=== PATIENT | female | born 1985 | race Caucasian/White ===

== ENCOUNTER 2019-09-13 06:54 | Day surgery (SDC) | payer BC ==
[2019-09-13] MEDS ORDERED: Lactated Ringers 1,000 ML IV ONE ×2 (07:13→08:18)
[2019-09-13] MEDS ORDERED: KEFZOL 1 GM/50 ML PREMIX** 1 GM/50 ML IVPB IV ONE (07:13)
[2019-09-13] MEDS ORDERED: KEFZOL 1 GM/50 ML PREMIX** 1 GM/50 ML IVPB IV SCH (07:15)
[2019-09-13] MEDS ORDERED: Lactated Ringers 1,000 ML IV SCH (07:30)
[2019-09-13] MEDS ORDERED: Sensorcaine 0.25% 10 ML ONE (08:18)
[2019-09-13] MEDS ORDERED: SUBLIMAZE 100 MCG/2 ML ONE ×2 (08:24→09:32)
[2019-09-13] MEDS ORDERED: DIPRIVAN 200 MG/20 ML IV ONE (08:24)
[2019-09-13] MEDS ORDERED: Zemuron 100 MG/10 ML ONE (08:24)
[2019-09-13] MEDS ORDERED: Quelicin Fliptop 200 MG/10 ML ONE (08:24)
[2019-09-13] MEDS ORDERED: ROBINUL ONE (08:55)
[2019-09-13] MEDS ORDERED: BRIDION 200MG/2ML IV ONE (09:18)
[2019-09-13] MEDS ORDERED: Decadron 4 MG INJ ONE (09:18)
[2019-09-13] MEDS ORDERED: Zofran 4 MG/2 ML VIAL ONE (09:18)
[2019-09-13] MEDS ORDERED: DILAUDID 2 MG INJECTION ONE (09:41)
[2019-09-13 10:30] VITALS: O2SAT 98
[2019-09-13 11:00] VITALS: BP 118/68; PULSE 70
--- NOTE | 2019-09-13 15:02 | OP ---
SURGERY DATE/TIME: 09/13/2019 0844 PREOPERATIVE DIAGNOSES: 1) Retained intrauterine device. 2) Multiparity desiring tubal sterilization. POSTOPERATIVE DIAGNOSES: 1) Retained intrauterine device. 2) Multiparity desiring tubal sterilization. PROCEDURES: 1) Removal of intrauterine device. 2) Laparoscopic tubal sterilization via Falope ring application. SURGEON: Alexander Keith D.O. SEPARATOR TENDER: Chilo Kinney neurosurgical physician assistant. ANESTHESIA: General. ESTIMATED BLOOD LOSS: Minimal. COMPLICATIONS: None. INDICATIONS: The risks, benefits, indications and alternatives of the procedure were reviewed with the patient prior to procedure. The patient understood the risk of infection, bleeding, bowel injury, bladder injury, ureteral injury, incisional hernia, possible future and ectopic that can be associated with 1:4 out of 1,000 who may still get as a result of having tubal sterilization, all other forms of control were discussed with the patient including control pills, Depo-Provera injection, intrauterine devices, as well as arm insertion. All forms of control were reviewed with the patient prior to the procedure and at this point the patient desires to have the procedure as a possible means to alleviate her current medical condition. DESCRIPTION OF PROCEDURE AND FINDINGS: From this point the patient is taken to the operating room, given general sedation, placed in a dorsal lithotomy position. Prepped and draped in usual sterile fashion. A weighted speculum is then placed in the patient's vagina and at this point polyp forceps were used to grasp the intrauterine device string which was removed without complication. From this point a uterine manipulator was then advanced through the endocervical canal as means to manipulate the uterus. Attention was then turned to the patient's abdomen where at this point a 5 mm incision was made approximately 2 cm above the umbilicus where a 5 mm trocar and sleeve were advanced under direct visualization. Pneumoperitoneum was advanced with 4 liters of CO2 gas and additional incision approximately 2 cm above the symphysis pubis was made where an 8 mm trocar and sleeve were advanced under direct visualization. From this point the bilateral adnexa appeared to be within normal limits and the Falope ring applicator was then loaded and the right fallopian tube was identified and the Falope ring applicator was placed approximately 2 to 3 cm away from the cornual region on the right side where it was grasped and the Falope ring was applied without complication with excellent placement. The same procedure was performed on the left side where a Falope ring applicator was reloaded and taken through the trocar site where the left fallopian tube was identified and approximately 2 to 3 cm from the cornual region the Falope ring applicator was applied without complication. The ring was noted to be in excellent placement. From this point all instruments were removed from the patient's abdomen. CO2 gas was then removed. The incisions were closed with 4-0 Monocryl suture with subsequent Dermabond. The patient was then taken out of anesthesia and was then taken to the recovery room in stable condition. All instruments and laps were accounted for x2.
== END 2019-09-13 11:27 | disposition home or self-care (01) ==
LOC: SDC 06:54
PROVIDERS: ATTEND Obstetrics & Gynecology
DX: Z30.2 Encounter for sterilization (principal); Z30.432 Encounter for removal of intrauterine contraceptive device
CPT/HCPCS: 84703; J0330; J0690; J1100; J1170; J2405; J2704; J3010

== ENCOUNTER 2022-11-26 11:22 | Emergency (ER) | payer BC ==
[2022-11-26] MEDS ORDERED: Sodium Chloride 0.9% 1000 ML 1,000 ML IV SCH (11:45)
[2022-11-26 12:24] LABS: Absolute Neutrophil Ct (ANC) 6.66 x10^3/uL (1.4-6.9); BASOPHIL % 0.6 % (0.0-0.4); Basophil (Absolute #) 0.05 x10^3/uL (0-0.4); Eosinophil % 0.3 % (0.00-5.0); Eosinophil (Absolute #) 0.03 x10^3/uL (0-0.5); Hematocrit 35.3 % (35-47); Hemoglobin 11.3 g/dL (12.0-16.0); IMMATURE GRAN # 0.02 x10^3u/L (0.00-0.03); IMMATURE GRAN % 0.2 % (0.00-0.4); Lymphocyte (Absolute #) 1.36 x10^3/uL (1.0-4.6); Lymphocytes % 15.7 % (24.0-44.0); Mean Cell Volume 82.7 fL (78-100); Mean Corpuscular Hemoglobin 26.5 pg (26-32); Mean Platelet Volume 9.4 fL (7.5-11.0); Monocyte (Absolute #) 0.52 x10^3/uL (0.0-1.3); Neutrophil % 77.2 % (36.0-66.0); Platelet Count 315 x10^3/uL (150-450); Red Blood Count 4.27 x10^6/uL (4.1-5.4); White Blood Count 8.6 x10^3/uL (4.0-10.5)
--- NOTE | 2022-11-26 12:25 | XRAY ---
Indication: Sharp abdomen pain. Multiple contiguous axial images obtained through the abdomen and pelvis without contrast. Comparison: None Lung bases clear with incidental small left lower lobe and left infrahilar calcified granulomas. Heart not enlarged. Previous gastric bypass surgery. Noncontrasted stomach and bowel loops appear nonobstructed with normal appendix. Moderate diffuse scattered colonic fecal debris throughout. No free fluid/air. A few tiny splenic calcified granulomas. Remaining liver, gallbladder, pancreas, spleen, adrenal glands, kidneys, ureters, bladder, uterus, and aorta are unremarkable for noncontrast exam. Osseous structures intact. No ventral or inguinal hernias. Impression: 1. Diffuse fecal stasis and old granulomatous disease. 2. Remaining CT abdomen/pelvis without contrast exam is negative.
[2022-11-26] MEDS ORDERED: Sodium Chloride 0.9% 1000 ML 1,000 ML ONE (12:34)
[2022-11-26 12:35] LABS: ALBUMIN 4.3 g/dL (3.5-5.0); ALKALINE PHOSPHATASE 56 U/L (38-126); ANION GAP 14.5 MEQ/L (5-15); BLOOD UREA NITROGEN 14 mg/dL (7-17); CHLORIDE 105 mmol/L (98-107); Calcium 8.9 mg/dL (8.4-10.2); Carbon Dioxide 23 mmol/L (22-30); Creatinine 1 0.53 mg/dL (0.52-1.04); EST GLOMERULAR FILTRATION RATE > 60.0 ML/MIN; Glucose 81 mg/dL (74-106); LIPASE 50 U/L (23-300); Potassium 3.5 mmol/L (3.5-5.1); SGOT/AST 31 U/L (14-36); SGPT/ALT 15 U/L (0-35); SODIUM 139 mmol/L (137-145); Total Protein 7.1 g/dL (6.3-8.2)
[2022-11-26 12:53] VITALS: O2SAT 100
--- NOTE | 2022-11-26 13:10 | ERPHSYRPT ---
- History of Present Illness Time Seen by Provider: 11/26/22 11:45 Historian: patient Exam Limitations: no limitations Patient Subjective Stated Complaint: pt here for epigastric pain today for over 2 hours, pain comes and goes, some nasuea. Triage Nursing Assessment: pt alert, resp easy, walked in, skin w/d/p. moves all ext well, no edema, abd soft Physician History: Patient is a 37-year-old female presents emergency department for evaluation of epigastric pain. Patient states the pain comes and goes in waves. Patient currently asymptomatic. No active pain. Patient admits to history of gallstones. However patient states she was not a candidate for an elective cholecystectomy due to a fatty liver. No trauma. No fever. Patient experienced some mild nausea at the time of her abdominal pain. No active tea sea at this time. No trauma. No fever. Patient had a gastric bypass surgery approximately 10 years ago. Patient has a history of reflux but since her gastric bypass surgery she has had no issues with reflux. Patient denies chest pain. Patient voices no other complaints or concerns at this time. Portions of this note were created with voice recognition technology. There may be grammatical, spelling, punctuation or sound alike errors Timing/Duration: today Activities at Onset: none Quality: aching Abdominal Pain Onset Location: epigastric Pain Radiation: no radiation Severity of Pain-Max: moderate Severity of Pain-Current: mild Modifying Factors: Improves With: nothing Associated Symptoms: nausea Previous symptoms: same symptoms as today Allergies/Adverse Reactions: NSAIDS (Non-Steroidal Anti-Inflamma Adverse Reaction (Verified 11/26/22 11:32) Patient states she had gastric bypass surgery and she is not to take NSAIDS Home Medications: Dextroamphetamine/Amphetamine [Dextroamp-Amphetamin 10 mg Tab] 10 mg PO DAILY 11/26/22 [History] Pramipexole Di-HCl 0.5 mg [Mirapex 0.5 MG Tablet] 0.5 mg PO DAILY 11/26/22 [History] Hx Tetanus, Diphtheria Vaccination/Date Given: No Hx Influenza Vaccination/Date Given: No Hx Pneumococcal Vaccination/Date Given: No Immunizations Up to Date: Yes Travel Risk - International Travel Have you traveled outside of the country in past 3 weeks: No - Coronavirus Screening Are you exhibiting any of the following symptoms?: No Close contact with a COVID-19 positive Pt in past 14-21 Days: No - Vaccine Status Have you recieved a Covid-19 vaccination: No - Review of Systems Constitutional: No Symptoms, No Fever, No Chills Eyes: No Symptoms Ears, Nose, & Throat: No Symptoms Respiratory: No Symptoms, No Cough, No Dyspnea Cardiac: No Symptoms, No Chest Pain, No Edema, No Syncope Abdominal/Gastrointestinal: No Symptoms, No Abdominal Pain, No Nausea, No Vomiting, No Diarrhea Genitourinary Symptoms: No Symptoms, No Dysuria Musculoskeletal: No Symptoms, No Back Pain, No Neck Pain Skin: No Symptoms, No Rash Neurological: No Symptoms, No Dizziness, No Focal Weakness, No Sensory Changes Psychological: No Symptoms Endocrine: No Symptoms Hematologic/Lymphatic: No Symptoms Immunological/Allergic: No Symptoms All Other Systems: Reviewed and Negative - Past Medical History Pertinent Past Medical History: No Neurological History: No Pertinent History ENT History: No Pertinent History Cardiac History: No Pertinent History Respiratory History: No Pertinent History Endocrine Medical History: No Pertinent History Musculoskeletal History: No Pertinent History GI Medical History: GERD, Gallbladder Disease, Other History: No Pertinent History Psycho-Social History: No Pertinent History Female Reproductive Disorders: Other Other Medical History: has interuterine device that will be removed with surgery today. had hx of GERD before her gastric bypass surgery bun none since then,fatty liver, gallstones - Past Surgical History Past Surgical History: Yes Neuro Surgical History: No Pertinent History Cardiac: No Pertinent History Respiratory: No Pertinent History Gastrointestinal: Other Genitourinary: No Pertinent History Musculoskeletal: No Pertinent History Female Surgical History: No Pertinent History Other Surgical History: GASTRIC BYPASS - Social History Smoking Status: Current every day smoker How long have you smoked: 19 Exposure to second hand smoke: Yes Drug Use: none Patient Lives Alone: No - Female History Hx Last Menstrual Period: now Hx Now: No - Nursing Vital Signs Nursing Vital Signs: Initial Vital Signs Temperature 97 F 11/26/22 11:33 Pulse Rate 97 H 11/26/22 11:33 Respiratory Rate 18 11/26/22 11:33 Blood Pressure 133/73 11/26/22 11:33 O2 Sat by Pulse Oximetry 97 11/26/22 11:33 Pain Scale Pain Intensity 3 - Physical Exam General Appearance: no apparent distress, alert Eye Exam: PERRL/EOMI, eyes nml inspection Ears, Nose, Throat Exam: normal ENT inspection, TMs normal, pharynx normal, moist mucous membranes Neck Exam: normal inspection, non-tender, supple, full range of motion Respiratory Exam: normal breath sounds, lungs clear, airway intact, No respiratory distress Cardiovascular Exam: regular rate/rhythm, normal heart sounds, normal peripheral pulses Gastrointestinal/Abdomen Exam: soft, No tenderness, No mass Back Exam: normal inspection, normal range of motion, No CVA tenderness, No vertebral tenderness Extremity Exam: normal inspection, normal range of motion, pelvis stable Neurologic Exam: alert, oriented x 3, cooperative, normal mood/affect, nml cerebellar function, nml station & gait, sensation nml, No motor deficits Skin Exam: normal color, warm, dry Lymphatic Exam: No adenopathy SpO2 Interpretation: normal SpO2: 100 O2 Delivery: Room Air - Course Nursing assessment & vital signs reviewed: Yes - CT Exams Abdomen/Pelvis CT Interpretation: Tele-radiologist Report (CT abdomen pelvis without contrast reveals calcified lung granuloma diffuse fecal stasis otherwise negative) Ordered Tests: Active Orders 24 hr Category Date Time Status IV Insertion STAT Care 11/26/22 11:39 Active ABDOMEN AND PELVIS W/0 CONTRAS [CT] Stat Exams 11/26/22 11:39 Completed CBC W DIFF Stat Lab 11/26/22 12:00 Completed CMP Stat Lab 11/26/22 12:00 Completed HCG QUALITATIVE, URINE Stat Lab 11/26/22 Ordered LIPASE Stat Lab 11/26/22 12:00 Completed TROPONIN Q4H Lab 11/26/22 12:00 Completed TROPONIN Q4H Lab 11/26/22 15:45 Ordered TROPONIN Q4H Lab 11/26/22 19:45 Ordered UA W/RFX UR CULTURE Stat Lab 11/26/22 11:39 Ordered Medication Summary Generic Name Dose Route Start Last Admin Trade Name Freq PRN Reason Stop Dose Admin Sodium Chloride 1,000 mls @ 100 mls/hr 11/26/22 11:45 11/26/22 12:38 Sodium Chloride 0.9% 1000 Ml IV 12/26/22 11:44 100 mls/hr .Q10H PRABHA Administration Lab/Rad Data: Laboratory Result Diagrams 11/26/22 12:00 11/26/22 12:00 Laboratory Results 11/26/22 11/26/22 11/26/22 Range/Units 12:00 12:00 12:00 WBC 8.6 (4.0-10.5) x10^3/uL RBC 4.27 (4.1-5.4) x10^6/uL Hgb 11.3 L (12.0-16.0) g/dL Hct 35.3 (35-47) % MCV 82.7 (78-100) fL MCH 26.5 (26-32) pg MCHC 32.0 (32-36) g/dL RDW 14.0 (11.5-14.0) % Plt Count 315 (150-450) x10^3/uL MPV 9.4 (7.5-11.0) fL Gran % 77.2 H (36.0-66.0) % Immature Gran % (Auto) 0.2 (0.00-0.4) % Nucleat RBC Rel Count 0.0 (0.00-0.1) % Eos # (Auto) 0.03 (0-0.5) x10^3/uL Immature Gran # (Auto) 0.02 (0.00-0.03) x10^3u/L Absolute Lymphs (auto) 1.36 (1.0-4.6) x10^3/uL Absolute Monos (auto) 0.52 (0.0-1.3) x10^3/uL Absolute Nucleated RBC 0.00 (0.00-0.01) x10^3u/L Lymphocytes % 15.7 L (24.0-44.0) % Monocytes % 6.0 (0.0-12.0) % Eosinophils % 0.3 (0.00-5.0) % Basophils % 0.6 (0.0-0.4) % Absolute Granulocytes 6.66 (1.4-6.9) x10^3/uL Basophils # 0.05 (0-0.4) x10^3/uL Sodium 139 (137-145) mmol/L Potassium 3.5 (3.5-5.1) mmol/L Chloride 105 (98-107) mmol/L Carbon Dioxide 23 (22-30) mmol/L Anion Gap 14.5 (5-15) MEQ/L BUN 14 (7-17) mg/dL Creatinine 0.53 (0.52-1.04) mg/dL Estimated GFR > 60.0 ML/MIN Glucose 81 (74-106) mg/dL Calcium 8.9 (8.4-10.2) mg/dL Total Bilirubin 0.80 (0.2-1.3) mg/dL AST 31 (14-36) U/L ALT 15 (0-35) U/L Alkaline Phosphatase 56 (38-126) U/L Troponin I < 0.012 (0.000-0.034) ng/mL Serum Total Protein 7.1 (6.3-8.2) g/dL Albumin 4.3 (3.5-5.0) g/dL Lipase 50 (23-300) U/L - Progress Progress: improved Progress Note: Patient is a 37-year-old female presents to our emergency department for evaluation of epigastric pain. Pain started prior to arrival. Pain has since resolved. However patient requested to continue with a work-up. Physical exam nonremarkable. Testing ordered include CBC CMP hCG lipase troponin urinalysis. Work-up essentially nonremarkable. Urinalysis ordered however patient unable to urinate during her ED stay. Patient urinated prior to arrival. Patient has no urinary symptomology at this time. CBC CMP essentially unremarkable. No leukocytosis. Electrolytes are within normal limits. Lipase negative. Troponin negative. CT abdomen pelvis reveals calcified lung granuloma and fecal stasis otherwise negative. No acute intra-abdominal pathology of concern. Patient reassessed. She remains pain-free. Patient states she is ready for discharge. Vital stable. Complexity of problems addressed is low acute uncomplicated. No critical care time. Complexity of data reviewed and analyzed is moderate. Test ordered. Test reviewed and analyzed by Dr. Berman. Patient served as independent historian. Risk of complication and or risk morbidity/mortality of patient management is low. Patient declined pain medication. Patient received IV fluids. Plan of care established via shared decision making. Patient agrees to follow- up with primary care doctor within 48 hours for reevaluation. There are no social determinants of health that will impede patient's follow-up. Patient voices no other complaints or concerns at this time. Portions of this note were created with voice recognition technology. There may be grammatical, spelling, punctuation or sound alike errors 11/26/22 13:38 Counseled pt/family regarding: lab results, diagnosis, need for follow-up, rad results - Departure Departure Disposition: Home Clinical Impression: Constipation, Lung granuloma, Epigastric pain Condition: Stable Critical Care Time: No Referrals: JOSE GUADALUPE TIJERINA [employer] REPAIR TECHNICIAN [Primary Care Provider] - Follow up/PCP as directed Instructions: Constipation, Adult (DC) Additional Instructions: Discharge/Care Plan SUZI HILL was seen on 11/26/22 in the Emergency Room. The patient was counseled regarding Diagnosis,Lab results, Imaging studies, need for follow up and when to return to the Emergency Room. Prescriptions given: Discharge Note I have spoken with the patient and/or caregivers. I have explained the patient's condition, diagnosis and treatment plan based on the information available to me at this time. I have answered the patient's and/or caregiver's questions and addressed any concerns. The patient and/or caregivers have as good understanding of the patient's diagnosis, condition and treatment plan as can be expected at this point. The vital signs have been stable. The patient's condition is stable and appropriate for discharge from the emergency department. The patient will pursue further outpatient evaluation with the primary care physician or other designated or consulting physician as outlined in the discharge instructions. The patient and/or caregivers are agreeable to this plan of care and follow-up instructions have been explained in detail. The patient and/or caregivers have received these instruction. The patient/and or caregivers are aware that any significant change in condition or worsening of symptoms darío uld prompt an immediate return to this or the closest emergency department or call 911.
[2022-11-26 13:25] VITALS: BP 145/110; PULSE 86
== END 2022-11-26 13:45 | disposition home or self-care (01) ==
LOC: ED 11:22
DX: K59.00 Constipation, unspecified (principal); J84.10 Pulmonary fibrosis, unspecified; R10.13 Epigastric pain; Z79.899 Other long term (current) drug therapy; Z28.310 Unvaccinated for COVID-19; Z72.0 Tobacco use
CPT/HCPCS: 36000; 36415; 74176; 80053; 83690; 84484; 85025; 99284